=== PATIENT | male | born 1965 | race African-American/Black ===

== ENCOUNTER 2019-05-13 14:22 | Emergency (ER) | payer SELFPAY ==
[~2019-05-13] VITALS: Ht 182.9 cm; Wt 80.0 kg
[2019-05-13 14:27] VITALS: BP 147/100
== END 2019-05-13 19:51 | disposition left against medical advice (07) ==
LOC: ER 14:34
DX: F98.9 Unspecified behavioral and emotional disorders with onset usually occurring in childhood and adolescence (principal); Z53.21 Procedure and treatment not carried out due to patient leaving prior to being seen by health care provider